=== PATIENT | male | born 1995 | race Caucasian/White ===

== ENCOUNTER 2020-03-13 01:27 | Emergency (ER) | payer OTHER ==
[2020-03-13 01:40] VITALS: Ht 172.7 cm
[2020-03-13 04:19] VITALS: BP 129/73
== END 2020-03-13 04:19 | disposition home or self-care (01) ==
LOC: ED 01:27
DX: S61.211A Laceration without foreign body of left index finger without damage to nail, initial encounter (principal); W54.0XXA Bitten by dog, initial encounter; Y93.89 Activity, other specified; Y92.488 Other paved roadways as the place of occurrence of the external cause; Y99.8 Other external cause status
CPT/HCPCS: 90715; A4570; J2001